=== PATIENT | male | born 1970 | race Caucasian/White ===

== ENCOUNTER → 2025-03-10 | Outpatient (REF) | LOC: M PLAIMG 13:38 | PROVIDERS: ATTEND Internal Medicine | DX: R52 Pain, unspecified (principal) ==

== ENCOUNTER 2025-03-23 17:21 | Inpatient (IN) | payer OTHER ==
[~2025-03-23] VITALS: Ht 175.3 cm; Wt 73.8 kg
[2025-03-23] MEDS: MORPHINE 4 MG/ML 1 ML VIAL IV PRN (17:45)
[2025-03-23 18:09] LABS: BASO # 0.0 10^3/uL (0.0-0.2); BASO % 0.1 % (0.0-1.0); EOS # 0.0 10^3/uL (0.0-0.5); EOS % 0.1 % (0.0-3.0); LYMPH # 2.3 10^3/uL (1.5-5.0); LYMPH % 25.2 % (24.0-44.0); MONO # 0.9 10^3/uL (0.0-0.8); MONO % 9.7 % (2.0-8.0); NEUTROPHILS # 5.8 10^3/uL (1.5-8.5); NEUTROPHILS % 64.0 % (36.0-66.0); PLATELET COUNT, AUTOMATED 114 10^3/uL (150-450)
[2025-03-23 18:10] LABS: CALCIUM LEVEL 8.7 MG/DL (8.5-10.1); CARBON DIOXIDE LEVEL 21 MMOL/L (20-31); CHLORIDE LEVEL 108 MMOL/L (98-107); CREATININE FOR GFR 0.43 MG/DL (0.70-1.30); GLOMERULAR FILTRATION RATE > 90.0 (>56); POTASSIUM SERUM 3.9 MMOL/L (3.5-5.1); SODIUM LEVEL 140 MMOL/L (136-145)
[2025-03-23] MEDS ORDERED: HYDROMORPHONE HCL 0.5 MG/0.5 ML SYRINGE IV PRN (19:20)
[2025-03-23] MEDS: KETOROLAC 30 MG/ML 1 ML VIAL IV ONE (19:33)
[2025-03-23] MEDS: HYDROMORPHONE HCL 0.5 MG/0.5 ML SYRINGE IV PRN (19:33)
[2025-03-23] MEDS: ACETAMINOPHEN *IV* 1,000 MG in IV 1 EA IV ONE (19:33)
[2025-03-23] MEDS: NS (Normal Saline) 0.9% 1,000 ML IV ONE (21:11)
[2025-03-23] MEDS ORDERED: MIRALAX *UNIT DOSE* 17 GM PACKET PO PRN (22:50)
[2025-03-24] VITALS (11 sets, daily range): BP systolic 112–140; BP diastolic 62–90; TEMP 98.2–101.4; O2SAT 92–96
[2025-03-24] MEDS: ACETAMINOPHEN 500 MG TAB PO SCH
[2025-03-24] MEDS: ONDANSETRON 4MG 2ML VIAL IV PRN (00:45)
[2025-03-24] MEDS: MORPHINE 4 MG/ML 1 ML VIAL IV PRN (00:46)
[2025-03-24] MEDS: SENNA 8.6 MG TAB PO SCH (00:51)
[2025-03-24] MEDS ORDERED: IPRATROPIUM 0.5 MG/ALBUTEROL 2.5 MG INH SOL UD 3 ML NEB PRN (06:30)
[2025-03-24] MEDS: cefTRIAXone SOD 1 GM in DEXTROSE 5% (D5W) ADV/MINI-BAG 50 ML IV SCH (06:53)
[2025-03-24] MEDS: IPRATROPIUM 0.5 MG/ALBUTEROL 2.5 MG INH SOL UD 3 ML NEB SCH (07:47)
[2025-03-24 08:09] LABS: PLATELET COUNT, AUTOMATED 97 10^3/uL (150-450)
[2025-03-24 08:32] LABS: ALT/SGPT 25 U/L (7.0-40); AST/SGOT 28 U/L (<34); CALCIUM LEVEL 8.2 MG/DL (8.5-10.1); CARBON DIOXIDE LEVEL 25 MMOL/L (20-31); CHLORIDE LEVEL 108 MMOL/L (98-107); CREATININE FOR GFR 0.49 MG/DL (0.70-1.30); GLOMERULAR FILTRATION RATE > 90.0 (>56); POTASSIUM SERUM 4.2 MMOL/L (3.5-5.1); SODIUM LEVEL 139 MMOL/L (136-145)
[2025-03-24 08:34] LABS: C REACTIVE PROTEIN QUANTITATIV 1.52 MG/DL (<1.0)
[2025-03-24 08:37] LABS: T UPTAKE 62.8 % (22.5-37.0)
[2025-03-24 09:10] LABS: THYROXINE (T4) 18.7 UG/DL (4.5-10.9)
[2025-03-24] MEDS ORDERED: IPRA0.00 INH (10:51)
[2025-03-24] MEDS ORDERED: DOXY100C3 PO (10:51)
[2025-03-24] MEDS ORDERED: PRED50TA57 PO (10:51)
[2025-03-24] MEDS ORDERED: HOME MED LIST COMPLETE! XX SCH (10:55)
[2025-03-24] MEDS ORDERED: MIDAZOLAM INJ 2 MG/2 ML VIAL As Ordered ONE (11:57)
[2025-03-24] MEDS: MIDAZOLAM INJ 2 MG/2 ML VIAL IV PRN (12:40)
[2025-03-24] MEDS: ROPIvacaine 0.5% 30ML VIAL PN ONE (12:46)
[2025-03-24] MEDS: LIDOCAINE 1% SDV 5 ML VIAL PN ONE (12:46)
[2025-03-24] MEDS ORDERED: ROCURONIUM BROMIDE 50MG/5ML VIAL As Ordered ONE (13:26)
[2025-03-24] MEDS ORDERED: ESMOLOL 100 MG/10 ML VIAL As Ordered ONE (13:27)
[2025-03-24] MEDS ORDERED: dexAMETHasone 4 MG/ML 1 ML VIAL As Ordered ONE (13:27)
[2025-03-24] MEDS ORDERED: ONDANSETRON 4MG 2ML VIAL As Ordered ONE (13:47)
[2025-03-24] MEDS ORDERED: SUGAMMADEX SODIUM 200 MG/2 ML VIAL As Ordered ONE (13:47)
[2025-03-24] MEDS ORDERED: HYDROMORPHONE HCL 0.5 MG/0.5 ML SYRINGE IV PRN (14:45)
[2025-03-24] MEDS ORDERED: MORPHINE 4 MG/ML 1 ML VIAL IV PRN (14:45)
[2025-03-24] MEDS: AZITHROMYCIN INJ 500 MG, VIAL MATE ADAPTER 1 EACH in NS 250 ML IV SCH (17:47)
[2025-03-24] MEDS: ceFAZolin SODIUM 2 GM in DEXTROSE 5% (D5W) ADV/MINI-BAG 50 ML IV SCH (20:12)
[2025-03-25] VITALS (7 sets, daily range): BP systolic 116–144; BP diastolic 73–85; TEMP 98.1–100; O2SAT 94–97
[2025-03-25 07:20] LABS: PLATELET COUNT, AUTOMATED 92 10^3/uL (150-450)
[2025-03-25 07:41] LABS: CALCIUM LEVEL 8.1 MG/DL (8.5-10.1); CARBON DIOXIDE LEVEL 27 MMOL/L (20-31); CHLORIDE LEVEL 104 MMOL/L (98-107); CREATININE FOR GFR 0.40 MG/DL (0.70-1.30); GLOMERULAR FILTRATION RATE > 90.0 (>56); POTASSIUM SERUM 3.8 MMOL/L (3.5-5.1); SODIUM LEVEL 137 MMOL/L (136-145)
[2025-03-25] MEDS: SYMBICORT 80/4.5MCG INHALER 6GM INH SCH (08:00)
[2025-03-25] MEDS: predniSONE 20 MG TAB PO SCH (09:13)
[2025-03-25] MEDS: ENOXAPARIN 40 MG/0.4 ML SYRINGE (J1650 PER 10MG) SC SCH (09:14)
[2025-03-25] MEDS: cefTRIAXone SOD 1 GM in DEXTROSE 5% (D5W) ADV/MINI-BAG 50 ML IV SCH (13:02)
[2025-03-25] MEDS: AZITHROMYCIN 250 MG TABLET PO SCH (20:00)
[2025-03-25] MEDS: MORPHINE 4 MG/ML 1 ML VIAL IV ONE (21:10)
[2025-03-25] MEDS: SENNA 8.6 MG TAB PO SCH (21:34)
[2025-03-25] MEDS: MIRALAX *UNIT DOSE* 17 GM PACKET PO SCH (21:34)
[2025-03-25] MEDS ORDERED: ISOVUE-370 76% 100 ML VIAL As Ordered ONE (22:10)
[2025-03-25] MEDS: LR 1,000 ML IV SCH (23:23)
[2025-03-26] VITALS (8 sets, daily range): BP systolic 108–162; BP diastolic 61–74; TEMP 97.1–99.8; O2SAT 92–99
[2025-03-26] MEDS: METOPROLOL TART 25 MG TABLET PO SCH ×2 (01:32→12:12)
[2025-03-26] MEDS: MORPHINE 4 MG/ML 1 ML VIAL IV PRN (07:49)
[2025-03-26 07:59] LABS: PLATELET COUNT, AUTOMATED 111 10^3/uL (150-450)
[2025-03-26 08:23] LABS: CALCIUM LEVEL 8.2 MG/DL (8.5-10.1); CARBON DIOXIDE LEVEL 27 MMOL/L (20-31); CHLORIDE LEVEL 106 MMOL/L (98-107); CREATININE FOR GFR 0.41 MG/DL (0.70-1.30); GLOMERULAR FILTRATION RATE > 90.0 (>56); POTASSIUM SERUM 3.9 MMOL/L (3.5-5.1); SODIUM LEVEL 141 MMOL/L (136-145)
[2025-03-26] MEDS ORDERED: PILL CUTTER 1 EACH XX ONE (12:18)
[2025-03-26 13:49] LABS: FREE T4 3.58 NG/DL (0.89-1.76)
[2025-03-26] MEDS ORDERED: METOPROLOL 5 MG/5 ML VIAL IV PRN (14:30)
[2025-03-26] MEDS: CEFDINIR 300 MG CAP PO SCH (20:08)
[2025-03-27 03:25] VITALS: BP 131/75; TEMP 97.7; O2SAT 97
[2025-03-27 06:31] LABS: PLATELET COUNT, AUTOMATED 121 10^3/uL (150-450)
[2025-03-27 06:40] LABS: CALCIUM LEVEL 8.3 MG/DL (8.5-10.1); CARBON DIOXIDE LEVEL 26 MMOL/L (20-31); CHLORIDE LEVEL 107 MMOL/L (98-107); CREATININE FOR GFR 0.43 MG/DL (0.70-1.30); GLOMERULAR FILTRATION RATE > 90.0 (>56); POTASSIUM SERUM 4.0 MMOL/L (3.5-5.1); SODIUM LEVEL 140 MMOL/L (136-145)
[2025-03-27 07:37] VITALS: BP 130/79; TEMP 97.6; O2SAT 96
[2025-03-27 11:55] VITALS: BP 108/62; TEMP 98; O2SAT 94
[2025-03-27 15:46] VITALS: BP 107/61; TEMP 98; O2SAT 97
[2025-03-27 20:05] VITALS: BP 112/64; TEMP 98.8; O2SAT 96
[2025-03-27 23:49] VITALS: BP 118/68; TEMP 97.6; O2SAT 96
[2025-03-28 04:30] VITALS: BP 115/65; TEMP 98; O2SAT 97
[2025-03-28 04:44] LABS: PLATELET COUNT, AUTOMATED 134 10^3/uL (150-450)
[2025-03-28 05:13] LABS: CALCIUM LEVEL 8.4 MG/DL (8.5-10.1); CARBON DIOXIDE LEVEL 27 MMOL/L (20-31); CHLORIDE LEVEL 105 MMOL/L (98-107); CREATININE FOR GFR 0.40 MG/DL (0.70-1.30); GLOMERULAR FILTRATION RATE > 90.0 (>56); POTASSIUM SERUM 3.9 MMOL/L (3.5-5.1); SODIUM LEVEL 139 MMOL/L (136-145)
[2025-03-28 05:16] LABS: FREE T4 2.22 NG/DL (0.89-1.76)
[2025-03-28 07:47] VITALS: BP 106/62; TEMP 98.1; O2SAT 94
[2025-03-28] MEDS ORDERED: ACETAMINOPHEN 325 MG TAB PO PRN (09:25)
[2025-03-28] MEDS ORDERED: SODIUM CHLORIDE NASAL 0.65% SPRAY BTL (OCEAN) PRN (11:30)
[2025-03-28 12:31] VITALS: BP 116/55; TEMP 98.2; O2SAT 95
[2025-03-28 15:32] VITALS: BP 130/70; TEMP 98.2; O2SAT 95
[2025-03-28 20:06] VITALS: BP 125/68; TEMP 97.3; O2SAT 97
[2025-03-28 23:38] VITALS: BP 131/66; TEMP 97.4; O2SAT 95
[2025-03-29 04:21] VITALS: BP 129/76; TEMP 97.2; O2SAT 96
[2025-03-29 05:40] LABS: PLATELET COUNT, AUTOMATED 149 10^3/uL (150-450)
[2025-03-29 06:00] LABS: CALCIUM LEVEL 8.6 MG/DL (8.5-10.1); CARBON DIOXIDE LEVEL 26 MMOL/L (20-31); CHLORIDE LEVEL 104 MMOL/L (98-107); CREATININE FOR GFR 0.42 MG/DL (0.70-1.30); GLOMERULAR FILTRATION RATE > 90.0 (>56); POTASSIUM SERUM 4.0 MMOL/L (3.5-5.1); SODIUM LEVEL 139 MMOL/L (136-145)
[2025-03-29] MEDS: METOPROLOL TART 25 MG TABLET PO ONE (08:10)
[2025-03-29 08:43] VITALS: BP 102/65; TEMP 98.2; O2SAT 95
[2025-03-29 11:58] VITALS: BP 112/68; TEMP 97.6; O2SAT 95
[2025-03-29 16:42] VITALS: BP 119/59; TEMP 97.3; O2SAT 96
[2025-03-29 20:00] VITALS: BP 139/67; TEMP 98.2; O2SAT 97
[2025-03-29] MEDS: METOPROLOL TART 50 MG TAB PO SCH (20:16)
[2025-03-29 23:49] VITALS: BP 111/62; TEMP 97; O2SAT 100
[2025-03-30 04:07] VITALS: BP 117/57; TEMP 97.5; O2SAT 95
[2025-03-30 08:51] VITALS: BP 110/58; TEMP 98.7; O2SAT 96
[2025-03-30 08:57] LABS: PLATELET COUNT, AUTOMATED 164 10^3/uL (150-450)
[2025-03-30 09:22] LABS: CALCIUM LEVEL 8.7 MG/DL (8.5-10.1); CARBON DIOXIDE LEVEL 26 MMOL/L (20-31); CHLORIDE LEVEL 103 MMOL/L (98-107); CREATININE FOR GFR 0.43 MG/DL (0.70-1.30); GLOMERULAR FILTRATION RATE > 90.0 (>56); POTASSIUM SERUM 4.5 MMOL/L (3.5-5.1); SODIUM LEVEL 139 MMOL/L (136-145)
[2025-03-30 12:46] VITALS: BP 111/68; TEMP 97.9; O2SAT 96
[2025-03-30 19:59] VITALS: BP 107/56; TEMP 97.7; O2SAT 96
[2025-03-31 03:18] VITALS: BP 106/56; TEMP 97.8; O2SAT 91
[2025-03-31 06:47] LABS: PLATELET COUNT, AUTOMATED 174 10^3/uL (150-450)
[2025-03-31 07:22] LABS: CALCIUM LEVEL 8.6 MG/DL (8.5-10.1); CARBON DIOXIDE LEVEL 26 MMOL/L (20-31); CHLORIDE LEVEL 101 MMOL/L (98-107); CREATININE FOR GFR 0.43 MG/DL (0.70-1.30); GLOMERULAR FILTRATION RATE > 90.0 (>56); POTASSIUM SERUM 4.2 MMOL/L (3.5-5.1); SODIUM LEVEL 136 MMOL/L (136-145)
[2025-03-31 08:01] VITALS: BP 120/61; TEMP 97.8; O2SAT 96
[2025-03-31 09:15] VITALS: BP 120/61
[2025-03-31] MEDS ORDERED: SYMB80INH INH (11:52)
[2025-03-31] MEDS ORDERED: SENN18TA PO (11:52)
[2025-03-31] MEDS ORDERED: ASPI-615 PO (11:52)
[2025-03-31] MEDS ORDERED: OXYC-517 PO (11:52)
[2025-03-31] MEDS ORDERED: LOPR1TAB6 PO (11:52)
[2025-03-31] MEDS ORDERED: MIRA33506 PO (11:52)
[2025-03-31] MEDS ORDERED: METH-1386 PO (11:52)
[2025-03-31] MEDS ORDERED: ACET-683 PO (11:53)
== END 2025-03-31 12:51 | DRG 308 ==
LOC: M ED 17:21 → M ED INP 22:58 → M MS5PR 03-24 01:40 → M PCU 03-26 10:16
PROVIDERS: ADMIT Student in an Organized Health Care Education/Training Program; ATTEND Student in an Organized Health Care Education/Training Program
PROC: 0PS Upper Bones, Reposition (ICD-10-PCS; 2025-03-24)
PROC: 0QH606Z Insertion of Intramedullary Internal Fixation Device into Right Upper Femur, Open Approach (ICD-10-PCS; principal; 2025-03-24 10:15)
DX: S72.141A Displaced intertrochanteric fracture of right femur, initial encounter for closed fracture (principal); J69.0 Pneumonitis due to inhalation of food and vomit; J18.9 Pneumonia, unspecified organism; L89.152 Pressure ulcer of sacral region, stage 2; J44.1 Chronic obstructive pulmonary disease with (acute) exacerbation; S52.571A Other intraarticular fracture of lower end of right radius, initial encounter for closed fracture; S52.614A Nondisplaced fracture of right ulna styloid process, initial encounter for closed fracture; W10.8XXA Fall (on) (from) other stairs and steps, initial encounter; Y92.89 Other specified places as the place of occurrence of the external cause; F17.210 Nicotine dependence, cigarettes, uncomplicated; F13.10 Sedative, hypnotic or anxiolytic abuse, uncomplicated; F41.9 Anxiety disorder, unspecified; E05.90 Thyrotoxicosis, unspecified without thyrotoxic crisis or storm; J98.11 Atelectasis; I10 Essential (primary) hypertension; M54.30 Sciatica, unspecified side

== ENCOUNTER 2025-03-31 12:19 | Inpatient (IN) | payer OTHER ==
[~2025-03-31] VITALS: Ht 172.7 cm; Wt 73.8 kg
[~2025-03-31 12:19] MED LIST: ACET-683 PO; ASPI-615 PO; DOXY100C3 PO; IPRA0.00 INH; LOPR1TAB6 PO; METH-1386 PO; MIRA33506 PO; OXYC-517 PO; PRED50TA57 PO; SENN18TA PO; SYMB80INH INH
[2025-03-31 12:45] VITALS: BP 107/65; TEMP 98.1; O2SAT 96
[2025-03-31] MEDS ORDERED: BISACODYL 10 MG SUPP PR PRN (13:35)
[2025-03-31] MEDS ORDERED: MOM 30 ML SUSPENSION UDC PO PRN (13:35)
[2025-03-31] MEDS ORDERED: SIMETHICONE 80MG CHEW TAB PO PRN (13:35)
[2025-03-31] MEDS ORDERED: ONDANSETRON 4MG ORAL DISINTEGRATING TAB PO PRN (13:35)
[2025-03-31] MEDS ORDERED: MAALOX 30 ML SUSP *UDC PO PRN (13:35)
[2025-03-31] MEDS: IPRATROPIUM 0.5 MG/ALBUTEROL 2.5 MG INH SOL UD 3 ML INH SCH (15:00)
[2025-03-31] MEDS: SYMBICORT 80/4.5MCG INHALER 6GM INH SCH (19:54)
[2025-03-31 20:00] VITALS: BP 120/71; TEMP 98.8; O2SAT 96
[2025-03-31] MEDS: AZITHROMYCIN 250 MG TABLET PO SCH (20:46)
[2025-03-31] MEDS: CEFDINIR 300 MG CAP PO ONE (20:47)
[2025-03-31] MEDS: METOPROLOL TART 50 MG TAB PO SCH (20:50)
[2025-03-31] MEDS: SENNA 8.6 MG TAB PO SCH (21:00)
[2025-03-31] MEDS: ACETAMINOPHEN 500 MG TAB PO SCH (22:00)
[2025-04-01 04:00] VITALS: BP 125/75; TEMP 98.8; O2SAT 95
[2025-04-01 06:37] LABS: BASO # 0.0 10^3/uL (0.0-0.2); BASO % 0.3 % (0.0-1.0); EOS # 0.3 10^3/uL (0.0-0.5); EOS % 2.2 % (0.0-3.0); LYMPH # 2.7 10^3/uL (1.5-5.0); LYMPH % 24.1 % (24.0-44.0); MONO # 1.0 10^3/uL (0.0-0.8); MONO % 9.1 % (2.0-8.0); NEUTROPHILS # 7.1 10^3/uL (1.5-8.5); NEUTROPHILS % 63.2 % (36.0-66.0); PLATELET COUNT, AUTOMATED 197 10^3/uL (150-450)
[2025-04-01 07:12] LABS: ALT/SGPT 33 U/L (7.0-40); AST/SGOT 24 U/L (<34); CALCIUM LEVEL 9.2 MG/DL (8.5-10.1); CARBON DIOXIDE LEVEL 26 MMOL/L (20-31); CHLORIDE LEVEL 101 MMOL/L (98-107); CREATININE FOR GFR 0.46 MG/DL (0.70-1.30); GLOMERULAR FILTRATION RATE > 90.0 (>56); POTASSIUM SERUM 4.5 MMOL/L (3.5-5.1); SODIUM LEVEL 136 MMOL/L (136-145)
[2025-04-01 08:05] VITALS: BP 131/60; O2SAT 96
[2025-04-01 08:10] VITALS: BP 115/67; O2SAT 94
[2025-04-01] MEDS: ENOXAPARIN 40 MG/0.4 ML SYRINGE (J1650 PER 10MG) SC SCH (09:09)
[2025-04-01 09:12] VITALS: BP 108/65
[2025-04-01 12:00] VITALS: BP 106/61; TEMP 98.4; O2SAT 95
[2025-04-01 20:05] VITALS: BP 124/64; TEMP 98.5; O2SAT 96
[2025-04-02 05:42] VITALS: BP 118/57; TEMP 98.3; O2SAT 94
[2025-04-02 07:48] LABS: FREE T4 2.28 NG/DL (0.89-1.76)
[2025-04-02 11:30] VITALS: BP 111/60; TEMP 97.9; O2SAT 96
[2025-04-02 20:00] VITALS: BP 117/62; TEMP 98.8; O2SAT 96
[2025-04-03 04:00] VITALS: BP 111/63; TEMP 98.4; O2SAT 97
[2025-04-03 08:26] LABS: PLATELET COUNT, AUTOMATED 201 10^3/uL (150-450)
[2025-04-03 12:08] VITALS: BP 112/57; TEMP 98.1; O2SAT 96
[2025-04-03 20:00] VITALS: BP 117/63; TEMP 97.5; O2SAT 99
[2025-04-03] MEDS: METOPROLOL TART 50 MG TAB PO SCH (20:56)
[2025-04-03] MEDS: CHOLESTYRAMINE 4 GM PWD PKT PO SCH (22:00)
[2025-04-04 04:00] VITALS: BP 104/56; TEMP 97.9; O2SAT 96
[2025-04-04 12:00] VITALS: BP 103/57; TEMP 97.5; O2SAT 97
[2025-04-04 20:00] VITALS: BP 120/62; TEMP 97.8; O2SAT 99
[2025-04-05 04:00] VITALS: BP 130/70; TEMP 98.1; O2SAT 97
[2025-04-05 12:00] VITALS: BP 112/61; TEMP 98.1; O2SAT 93
[2025-04-05 20:00] VITALS: BP 101/57; TEMP 97; O2SAT 99
[2025-04-06 04:00] VITALS: BP 120/62; TEMP 97.8; O2SAT 96
[2025-04-06 05:47] LABS: PLATELET COUNT, AUTOMATED 227 10^3/uL (150-450)
[2025-04-06] MEDS: BISACODYL 5 MG TAB PO PRN (09:32)
[2025-04-06 12:00] VITALS: BP 103/56; TEMP 97.5; O2SAT 98
[2025-04-06 20:00] VITALS: BP 122/63; TEMP 98.4; O2SAT 95
[2025-04-07 04:00] VITALS: BP 118/63; TEMP 97.7; O2SAT 96
[2025-04-07 07:09] LABS: FREE T4 1.42 NG/DL (0.89-1.76)
[2025-04-07 12:00] VITALS: BP 103/57; TEMP 98.1; O2SAT 97
[2025-04-07] MEDS ORDERED: ALBU8.5H INH (15:58)
[2025-04-07] MEDS ORDERED: SYMB80INH INH (15:58)
[2025-04-07] MEDS ORDERED: METH-1164 PO (15:58)
[2025-04-07] MEDS ORDERED: OXYC-517 PO (15:58)
[2025-04-07] MEDS ORDERED: ATEN50TA2 PO (15:58)
[2025-04-07] MEDS ORDERED: METH-1386 PO (15:58)
[2025-04-07] MEDS ORDERED: HYDR-3363 PO (15:58)
[2025-04-07] MEDS ORDERED: PRED20TA PO (15:58)
[2025-04-07 20:00] VITALS: BP 124/63; TEMP 98.6; O2SAT 94
[2025-04-08 04:00] VITALS: BP 135/67; TEMP 98.2; O2SAT 94
[2025-04-08 08:59] VITALS: BP 117/60
[2025-04-08 09:02] VITALS: O2SAT 96
== END 2025-04-08 10:35 | disposition home health service (06) | DRG 862 ==
LOC: M PM&R 12:45
PROVIDERS: ADMIT Physical Medicine & Rehabilitation; ATTEND Physical Medicine & Rehabilitation
DX: S72.141D Displaced intertrochanteric fracture of right femur, subsequent encounter for closed fracture with routine healing (principal); J69.0 Pneumonitis due to inhalation of food and vomit; L89.152 Pressure ulcer of sacral region, stage 2; J18.9 Pneumonia, unspecified organism; S52.571D Other intraarticular fracture of lower end of right radius, subsequent encounter for closed fracture with routine healing; E05.90 Thyrotoxicosis, unspecified without thyrotoxic crisis or storm; R00.0 Tachycardia, unspecified; J44.9 Chronic obstructive pulmonary disease, unspecified; F41.9 Anxiety disorder, unspecified; I95.1 Orthostatic hypotension; Z88.0 Allergy status to penicillin; Z79.82 Long term (current) use of aspirin; Z79.899 Other long term (current) drug therapy; Z91.148 Patient's other noncompliance with medication regimen for other reason; W10.8XXD Fall (on) (from) other stairs and steps, subsequent encounter

== ENCOUNTER → 2025-04-17 | Outpatient (CLI) | payer OTHER ==
[~2025-04-17] MED LIST changes: +ALBU8.5H INH; +ATEN50TA2 PO; +HYDR-3363 PO; +METH-1164 PO; +PRED20TA PO
== END ==
LOC: M SOG 07:21
PROVIDERS: ATTEND Orthopaedic Surgery
DX: S52.501A Unspecified fracture of the lower end of right radius, initial encounter for closed fracture (principal); S72.141A Displaced intertrochanteric fracture of right femur, initial encounter for closed fracture; W18.30XA Fall on same level, unspecified, initial encounter; Y92.009 Unspecified place in unspecified non-institutional (private) residence as the place of occurrence of the external cause

== ENCOUNTER → 2025-05-11 | Outpatient (CLI) | payer OTHER | LOC: M SOG 07:44 | PROVIDERS: ATTEND Physician Assistant | DX: S52.501D Unspecified fracture of the lower end of right radius, subsequent encounter for closed fracture with routine healing (principal); S72.141D Displaced intertrochanteric fracture of right femur, subsequent encounter for closed fracture with routine healing; W18.30XD Fall on same level, unspecified, subsequent encounter ==